=== PATIENT | male | born 1985 | race African-American/Black ===

== ENCOUNTER 2023-12-17 16:23 | Emergency (ER) | payer MEDICAID ==
[~2023-12-17] VITALS: Ht 177.8 cm; Wt 87.0 kg
[2023-12-17 16:33] VITALS: O2SAT 98
[2023-12-17] MEDS ORDERED: LIDOCAINE HCL 1% 20ML VIAL INFIL ONE (17:30)
[2023-12-17] MEDS: LIDOCAINE HCL 1% 20ML VIAL INFIL NR (18:13)
[2023-12-17] MEDS: TETANUS, DIPHTHERIA, PERTUSSIS VAC/PF 0.5ML (>10YR OLD) IM ONE (19:08)
[2023-12-17] MEDS ORDERED: CEPH500C2 MT (19:32)
[2023-12-17 19:48] VITALS: BP 124/88; PULSE 72; RESP 16; TEMP 36.72516; O2SAT 99
== END 2023-12-17 19:52 | disposition home or self-care (01) ==
LOC: ER 16:23
DX: S61.012A Laceration without foreign body of left thumb without damage to nail, initial encounter (principal); X58.XXXA Exposure to other specified factors, initial encounter; Y93.89 Activity, other specified; Y92.89 Other specified places as the place of occurrence of the external cause; Y99.8 Other external cause status
CPT/HCPCS: 73130; 90715; 12001; 90471; 99283; J3490; Z7610 ×4